=== PATIENT | female | born 2000 | race Caucasian/White ===

== ENCOUNTER 2025-05-09 15:41 | Emergency (ER) | payer MEDICAID ==
[~2025-05-09] VITALS: Ht 160 cm; Wt 52.3 kg
[2025-05-09 15:45] VITALS: BP 92/49; PULSE 70; RESP 18; TEMP 97.7; O2SAT 98
== END 2025-05-09 16:57 | disposition home or self-care (01) ==
LOC: EMS 15:41
DX: S63.501A Unspecified sprain of right wrist, initial encounter (principal); X58.XXXA Exposure to other specified factors, initial encounter; Y93.89 Activity, other specified; Y92.89 Other specified places as the place of occurrence of the external cause; Y99.8 Other external cause status
CPT/HCPCS: 99283